=== PATIENT | female | born 1970 | race Caucasian/White ===

== ENCOUNTER 2016-12-21 22:12 | Emergency (ER) | payer MEDICARE ==
--- NOTE | ~2016-12-21 | CT4 ---
[facility] A Service of [facility] / [facility] RADIOLOGY TEXT RESULTS PATIENT: GEMMA CASAS LOCATION: [facility] : 74 UNIT #: [id number] AGE: [address]: Son Olivier MD SEX: F ORDER DR: [id number] [address] [address] [id number] MR#: [id number] Acc #: [id number] NAME: GEMMA CASAS : 1970 SEX: F STUDY DATE/TIME: 12/22/2016 1:28 UNIT: [facility] ROOM: STUDY DESCRIPTION: CT Abd and Pelv Wo Cont Attending Physician: Son Olivier M.D. Ordering Physician: Son Olivier M.D. Primary Care Physician: [facility] IMAGING REPORT This report is preliminary unless electronic signature is present EXAM CT scan of the abdomen and pelvis without contrast INDICATION Lower abdomen pain and back pain and decreased urination for 4 days. History of stones. COMPARISON 08/13/2011 TECHNIQUE Axial 3 mm images were obtained through the abdomen and pelvis without IV or oral contrast. This CT exam was performed with one or more of the following radiation dose reduction techniques: automatic exposure control, adjustment of mA and/or kV according to patient size, and iterative reconstruction. FINDINGS Sagittal and coronal reconstructions were generated. The liver, gallbladder, spleen, pancreas, and adrenal glands are normal. There are no urinary stones identified. The aorta is normal in size and there is no adenopathy. The bowel including the appendix appears normal. The uterus and adnexal regions and bladder are normal. The bones are unremarkable. IMPRESSION 1. No urinary stones or obstruction are identified. 2. Normal appendix. 3. Otherwise normal study. Dictated by... [facility] A Service [facility] RADIOLOGY TEXT RESULTS PATIENT: GEMMA CASAS LOCATION: [facility] : 74 UNIT #: [id number] AGE: [address]: Son Olivier MD SEX: F ORDER DR: Chris Vallecillo M.D. THIS IS AN ELECTRONICALLY VERIFIED REPORT Chris Vallecillo M.D. at 12/22/2016 3:38 AM TASHI/tatyana TD: 12/22/2016 03:15 JOB #: [id number] MEDICAL IMAGING REPORT Page 1 of 1 COPY
--- NOTE | ~2016-12-21 | EKG ---
PATIENT: GEMMA CASAS UNIT #: [id number] Ventricular Rate: 93 BPM Atrial Rate: 93 BPM P-R Interval: 118 ms QRS Duration: 74 ms Q-T Interval: 342 ms QTC Calculation(Bezet): 425 ms P [place]: 56 degrees Calculated R [place]: 49 degrees Calculated T [place]: 55 degrees Diagnosis Line: Normal sinus rhythm with sinus arrhythmia Diagnosis Line: Septal injury pattern Diagnosis Line: Borderline ECG Diagnosis Line: When compared with ECG of 08-AUG-2013 17:00, Diagnosis Line: T wave inversion now evident in Anterior leads Diagnosis Line: Confirmed by STEPHEN DIALLO MD ([id number]) on 12/22/2016 Diagnosis Line: 7:42:40 AM INTERPRETING MD: IMANI PROCTOR
[2016-12-21 23:36] LABS: BASOPHIL# 0.1 X10e3 (0-0.3); EOSINOPHIL# 0.1 X10e3 (0-0.7); EOSINOPHIL% 0.7 % (0.0-7.0); HEMATOCRIT 44.7 % (35.0-45.0); HEMOGLOBIN 14.9 gm/dL (12.0-16.0); LYMPHOCYTE# 4.1 X10e3 (1.0-3.5); LYMPHOCYTE% 32.1 % (17.0-45.0); MEAN CELL VOLUME 96.7 FL (83-96); MEAN CORPUSCULAR HEMOGLOBIN 32.2 PG (28-34); MEAN CORPUSCULAR HGB CONC 33.3 g/dL (30-36); MEAN PLATELET VOLUME 9.2 FL (6.5-11.5); MONOCYTE# 0.8 X10e3 (0-1.0); NEUTROPHIL# 7.6 X10e3 (1.5-7.1); NEUTROPHIL% 60.2 % (40-75); PLATELET COUNT 255 X10e3 (140-420); RED BLOOD COUNT 4.62 X10e (3.90-5.30); RED CELL DISTRIBUTION WIDTH 13.3 % (11.0-15.5); WHITE BLOOD COUNT 12.7 X10e3 (4.0-10.5)
[2016-12-21 23:38] LABS: DIFF IND NO
[2016-12-21 23:56] LABS: POC - CKMB <1.0 ng/mL (0.0-7.9); POC - TROPONIN <0.05 ng/mL (<=0.05)
[2016-12-22 00:04] LABS: ALBUMIN SERUM 5.2 g/dL (3.5-5.0); BILIRUBIN, DIRECT 0.1 mg/dL (0.0-0.2); BILIRUBIN,INDIRECT 0.9 mg/dL (0.0-0.9); BUN/CREATININE RATIO 12.5; CALCIUM SERUM 9.9 mg/dL (8.4-10.2); CREATININE SERUM 0.8 mg/dL (0.6-1.4); GLOM FILT RATE Estimated 89.7 mL/min (>60); POTASSIUM 3.2 mmol/L (3.5-5.1); PROTEIN TOTAL SERUM 8.5 g/dL (6.0-8.3)
[2016-12-22 00:45] LABS: URINE SOURCE CLEAN CATCH
[2016-12-22 00:48] LABS: URINE APPEARANCE CLEAR; URINE BILIRUBIN NEG (NEG); URINE BLOOD TRACE (NEG); URINE COLOR YELLOW; URINE GLUCOSE NEG (NEG); URINE KETONE TRACE (NEG); URINE LEUKOCYTE ESTERASE TRACE (NEG); URINE NITRATE NEG (NEG); URINE PROTEIN NEG (NEG); URINE SPECIFIC GRAVITY 1.016 (1.003-1.035)
[2016-12-22 00:51] LABS: CULTURE INDICATED? YES; URINE BACTERIA AUWI 1+ (NEGATIVE); URINE SQUAMOUS EPITHELIAL CELL OCC /[HPF]
== END 2016-12-22 02:04 | disposition home or self-care (01) ==
LOC: CED 22:12
PROVIDERS: Emergency Medicine
DX: S39.012A Strain of muscle, fascia and tendon of lower back, initial encounter (principal); N30.00 Acute cystitis without hematuria; X58.XXXA Exposure to other specified factors, initial encounter; Y92.9 Unspecified place or not applicable
CPT/HCPCS: 36415; 74176; 80048; 80076; 81003; 82553; 84484; 84703; 85025; 87086; 93005; 96361; 96374; 99284; J1885